=== PATIENT | male | born 1960 | race African-American/Black ===

== ENCOUNTER 2017-02-10 13:11 | Emergency (ER) | payer SELFPAY ==
[~2017-02-10] VITALS: Ht 167.6 cm; Wt 91.2 kg
[~2017-02-10 13:11] MED LIST: ASPI-630 PO; AZIT250T6 PO; BENZ100C PO; GUAI10LI PO; LISI-338 PO; LISI10TA2 PO; PRED50TA PO; PROVENTIL HFA6.7 GM IH
[2017-02-10 13:41] VITALS: BP 140/84
[2017-02-10] MEDS ORDERED: PRED50TA PO (14:40)
[2017-02-10] MEDS ORDERED: PROAIR HFA8.5 GM INH (14:40)
[2017-02-10] MEDS ORDERED: AZIT250T6 PO (14:40)
[2017-02-10] MEDS ORDERED: BENZ100C PO (14:40)
--- NOTE | 2017-02-10 14:41 | PHYS DOC ---
Past Medical History Past Medical History: Hypertension, Other Additional Past Medical Histor: lower back pain Past Surgical History: Other Additional Past Surgical Histo: bilat ankle, hernia, achilles Alcohol Use: Occasionally Drug Use: Cocaine, Marijuana Adult General Chief Complaint Chief Complaint: Congestion HPI HPI Patient is a 57 year old male who presents with a productive cough for 2 weeks , patient is a smoker, he states is also had subjective fevers intermittently for 2 weeks. He also has history of hypertension and states he has been taking his friend's blood pressure medicine because he ran out. Review of Systems Review of Systems Constitutional: Denies fever or chills [] Eyes: Denies change in visual acuity, redness, or eye pain [] HENT: Reports nasal congestion denies sore throat [] Respiratory: cough denies any shortness of breath. Cardiovascular: No additional information not addressed in HPI [] GI: Denies abdominal pain, nausea, vomiting, bloody stools or diarrhea [] : Denies dysuria or hematuria [] Musculoskeletal: Denies back pain or joint pain [] Integument: Denies rash or skin lesions [] Neurologic: Denies headache, focal weakness or sensory changes [] All other systems were reviewed and found to be within normal limits, except as documented in this note. Allergies Allergies Allergies Coded Allergies Type Severity Reaction Last Updated Verified No Known Drug Allergies 01/05/14 No Physical Exam Physical Exam Constitutional: Well developed, well nourished, no acute distress, non-toxic appearance. [] HENT: Normocephalic, atraumatic, bilateral external ears normal, oropharynx moist, no oral exudates, nose normal. [] Eyes: PERRLA, EOMI, conjunctiva normal, no discharge. [] Neck: Normal range of motion, no tenderness, supple, no stridor. [] Cardiovascular:Heart rate regular rhythm, no murmur [] Lungs & Thorax: Bilateral breath sounds clear to auscultation [] Abdomen: Bowel sounds normal, soft, no tenderness, no masses, no pulsatile masses. [] Skin: Warm, dry, no erythema, no rash. [] Back: No tenderness, no CVA tenderness. [] Extremities: No tenderness, no cyanosis, no clubbing, ROM intact, no edema. [] Neurologic: Alert and oriented X 3, normal motor function, normal sensory function, no focal deficits noted. [] Psychologic: Affect normal, judgement normal, mood normal. [] Current Patient Data Vital Signs Vital Signs Date Time Temp Pulse Resp B/P (MAP) Pulse Ox O2 Delivery O2 Flow Rate FiO2 02/10/17 13:41 98.2 69 18 98 Room Air 98.2 EKG EKG [] Radiology/Procedures Radiology/Procedures [] Course & Med Decision Making Course & Med Decision Making Pertinent Labs and Imaging studies reviewed. (See chart for details) Patient is in the ED with symptoms consistent of acute bronchitis including cough and congestion for 2 weeks. Discharged with azithromycin prednisone Tessalon Perles and albuterol inhaler. Encouraged to consider smoking cessation. Instructed to follow-up with his own PCP in 1-2 weeks Carlton Disclaimer Carlton Disclaimer This electronic medical record was generated, in whole or in part, using a voice recognition dictation system. Departure Departure Impression: Primary Impression: Acute bronchitis Additional Impressions: Upper respiratory infection Smoking addiction Disposition: HOME, SELF-CARE Condition: STABLE Referrals: NO PCP (PCP) follow up with your doctor in one week Patient Instructions: Acute Bronchitis, Smoking Cessation, Upper Respiratory Infection, Adult, [id number] Additional Instructions: You were seen with acute bronchitis, you also have an upper respiratory infection. Consider smoking cessation. Take the prescribed medicines as prescribed. Follow-up with your doctor in the next 7 days. Do not take other people's blood pressure medications. Scripts Azithromycin (AZITHROMYCIN TABLET) 250 Mg Tablet 1 PKG PO UD, #6 TAB Prov: ИВАНBAILEY MUSTAFA CYLINDER SANDER OPERATOR 02/10/17 Benzonatate (TESSALON PERLE) 100 Mg Capsule 1 CAP PO TID, #30 CAP Prov: BAILEY CAMACHO CYLINDER SANDER OPERATOR 02/10/17 Prednisone (PREDNISONE) 50 Mg Tablet 1 TAB PO DAILY, #5 TAB Prov: BAILEY CAMACHO CYLINDER SANDER OPERATOR 02/10/17 Albuterol Sulfate (PROAIR HFA INHALER) 8.5 Gm Hfa.aer.ad 1 PUFF INH PRN Q6HRS Y for SHORTNESS OF BREATH, #1 INHALER 0 Refills Prov: BAILEY CAMACHO CYLINDER SANDER OPERATOR 02/10/17 Problem Qualifiers Primary Impression: Acute bronchitis Bronchitis organism: unspecified organism Qualified Codes: J20.9 - Acute bronchitis, unspecified Additional Impressions: Upper respiratory infection URI type: unspecified URI Qualified Codes: J06.9 - Acute upper respiratory infection, unspecified BAILEY CAMACHO ALVARO Feb 10, 2017 14:41
--- NOTE | 2017-02-10 15:48 | RAD ---
Chest, 2 views, 02/10/2017: History: Cough Comparison is made to a study from 09/23/2015. The heart size and pulmonary vascularity are normal. No pulmonary infiltrates are seen. There is no evidence of pleural fluid. Mild spurring is present in the spine. IMPRESSION: No acute cardiopulmonary abnormality is detected.
== END 2017-02-10 14:48 | disposition home or self-care (01) ==
LOC: ER 13:11
DX: J06.9 Acute upper respiratory infection, unspecified (principal); J20.9 Acute bronchitis, unspecified; I10 Essential (primary) hypertension; F17.200 Nicotine dependence, unspecified, uncomplicated; F12.10 Cannabis abuse, uncomplicated; F14.10 Cocaine abuse, uncomplicated
CPT/HCPCS: 71020; 99284

== ENCOUNTER 2017-04-05 13:21 | Emergency (ER) | payer SELFPAY | END 2017-04-05 15:19 | disposition home or self-care (01) | LOC: ER 15:19 | DX: J20.9 Acute bronchitis, unspecified (principal); I10 Essential (primary) hypertension | CPT/HCPCS: 99283 ==

== ENCOUNTER 2017-04-22 16:43 | Emergency (ER) | payer SELFPAY | END 2017-04-22 17:11 | disposition home or self-care (01) | LOC: ER 17:11 | DX: M25.561 Pain in right knee (principal); I10 Essential (primary) hypertension; G89.29 Other chronic pain; W00.0XXA Fall on same level due to ice and snow, initial encounter; Y93.89 Activity, other specified; Y92.89 Other specified places as the place of occurrence of the external cause; Y99.8 Other external cause status | CPT/HCPCS: 29505; 99283 ==

== ENCOUNTER → 2017-10-11 | Outpatient (CLI) | payer OTHER | END | disposition home or self-care (01) | LOC: KCIC 13:53 | DX: R76.11 Nonspecific reaction to tuberculin skin test without active tuberculosis (principal); I10 Essential (primary) hypertension; Z87.891 Personal history of nicotine dependence | CPT/HCPCS: 71045 ==